=== PATIENT | male | born 1945 | race Caucasian/White ===

== ENCOUNTER 2018-01-19 09:00 | Inpatient (IN) | payer OTHER ==
[~2018-01-19] VITALS: Ht 160 cm; Wt 77.1 kg
[2018-01-19] MEDS ORDERED: CARDURA XL4 MG PO (12:30)
[2018-01-19] MEDS ORDERED: LASIX20 MG PO (12:31)
[2018-01-19] MEDS ORDERED: COZAAR100 MG PO (12:31)
[2018-01-19] MEDS ORDERED: VERAPAMIL ER180 MG PO (12:31)
[2018-01-19] MEDS ORDERED: LIPITOR20 MG PO (12:31)
[2018-02-03] MEDS ORDERED: INTEGRA PLUS C1 EACH PO (07:22)
[2018-02-03] MEDS ORDERED: OXYC1TAB9 PO (07:23)
[2018-02-03] MEDS ORDERED: XARELTO10 MG PO (07:23)
== END 2018-02-03 13:53 | DRG 470 ==
LOC: SURG 01-31 04:55 → O/R 01-31 04:55 → SURH 01-31 09:00 → SURG 01-31 18:06
PROVIDERS: Orthopaedic Surgery Sports Medicine
PROC: 0SRD0J9 Replacement of Left Knee Joint with Synthetic Substitute, Cemented, Open Approach (ICD-10-PCS; principal; 2018-01-31 10:30)
DX: M17.12 Unilateral primary osteoarthritis, left knee (principal)